=== PATIENT | female | born 1970 | race Hispanic/Latino ===

== ENCOUNTER 2016-12-25 22:47 | Emergency (ER) | payer MEDICARE ==
[~2016-12-25] VITALS: Ht 162.6 cm; Wt 179.0 kg
[2016-12-25 22:52] VITALS: BP 115/73; PULSE 71; RESP 19; O2SAT 98
[2016-12-26 00:53] LABS: BASOPHILS % (AUTO) 0.3 % (0-3); EOSINOPHILS % (AUTO) 1.4 % (0-5); MONOCYTES % (AUTO) 11.5 % (4-12); Mean Corpuscular Hemoglobin 31.7 pg (27.0-35.0); Mean Corpuscular Volume 92.6 fL (81-100); NEUTROPHILS % (AUTO) 47.8 % (40-74); Platelet Count 373 bil/L (150-400)
[2016-12-26 01:11] LABS: Magnesium 2.1 mg/dL (1.6-2.6)
--- NOTE | 2016-12-26 01:18 | ED.REPORT ---
HPI-Abd Pain F 40 and Over Date of Service Dec 26, 2016 ED Provider: Rafael Torres MD Pt is a 46 y/o female with a history of DM and hyperlipidemia who presents to the ED c/o constipation onset two weeks. Additional symptoms include worsening LLQ abdominal pain. She denies fever, melena, hematochezia, or decreased appetite. She has no history of chronic constipation or thyroid disease. Pt has seen her PCP for these symptoms. Nursing Notes Stated Complaint: ABDOMINAL PAIN, CONSTIPATION Chief Complaint: Female Abdominal Pain Nursing Notes Reviewed: Yes Allergies: Coded Allergies: No Known Allergies (Verified , 12/25/16) Scheduled Lactulose (Lactulose) 20 Gm/30 Ml Solution 20 GM PO BID General Time Seen by MD: :17 Chief Complaint Abdominal pain Hx Obtained From: Patient, Daughter Arrived By: Walk-in Sudden in Onset?: No Onset Occurred: More than a week ago... (2 weeks) Symptom Duration: Constant Location: : LLQ Quality: Painful Severity: Current: Moderate Severity: Maximum: Moderate Recent Healthcare: No recent hospitalization, Recent doctor visit Similar Sx Previous: No Past Medical History Past Medical History Gestational Hypertension Reports: Diabetes mellitus, Hyperlipidemia Past Surgical History ORIF Tib/Fib with complications Reports: Reports: Tubal ligation Smoking History Never Smoker Social History Alcohol Use: Denies alcohol use Drug Use: Denies drug use Other Social History: Good social support, Lives with children Ambulatory Status Independent Review of Systems No decreased appetite Constitutional: Denies: Fever GI: Reports: Abdominal pain (worsening LLQ ), Constipation, Denies: Hematochezia, Melena Complete sys rev & neg: except as marked. Physical Exam Vital Signs Vital Signs (First) Date Time Temp Pulse Resp B/P Pulse Ox O2 Delivery O2 Flow Rate FiO2 12/25/16 22:52 36.3 71 19 115/73 98 Room Air Initial VS: Reviewed Head / Eyes: Atraumatic, Normocephalic Neck: Supple, Full range of motion Extremities: Vascular intact, Neuro intact, No swelling, No tenderness Skin: Warm, Dry, No cyanosis Neurologic: Alert, Oriented, Nonfocal Psychiatric: Mood/affect normal, Behavior normal, Normal thought content General/Constitutional: Awake, Alert Respiratory / Chest: Atraumatic, Breath sounds NL, Breath sounds = bilat, No respiratory distress Cardiovascular: Heart rate NL, Regular rhythm, Heart sounds NL Abdomen: Soft, BS normoactive Tenderness/Guarding/Rebound: Positive: Tender LLQ... (Mild) Back: Full range of motion, Non-tender Interpretation & Diagnostics Lab Results Interpretation Result Diagram: 12/26/16 0030 12/26/16 0030 Test 12/26/16 00:30 12/26/16 02:00 White Blood Count 10.2th/mm3 (3.8-10.1) Red Blood Count 4.35mil/mm3 (3.90-5.20) Hemoglobin 13.8g/dL (12.0-15.6) Hematocrit 40.3% (35.0-46.0) Mean Corpuscular Volume 92.6fL (81-100) Mean Corpuscular Hemoglobin 31.7pg (27.0-35.0) Mean Corpuscular Hemoglobin Concent 34.2% (32.0-37.0) Red Cell Distribution Width 11.8% (12.3-15.4) Platelet Count 373bil/L (150-400) Neutrophils (%) (Auto) 47.8% (40-74) Lymphocytes (%) (Auto) 38.8% (14-46) Monocytes (%) (Auto) 11.5% (4-12) Eosinophils (%) (Auto) 1.4% (0-5) Basophils (%) (Auto) 0.3% (0-3) Sodium Level 134mEq/L (134-144) Potassium Level 4.6mEq/L (3.5-5.2) Chloride Level 98mEq/L (97-108) Carbon Dioxide Level 18mmol/L (18-29) Blood Urea Nitrogen 12mg/dL (6-24) Creatinine 0.39mg/dL (0.57-1.00) Estimat Glomerular Filtration Rate 255mL/min (>59) Glucose Level 111mg/dL (60-99) Calcium Level 9.2mg/dL (8.5-10.1) Magnesium Level 2.1mg/dL (1.6-2.6) Total Bilirubin 0.3mg/dL (0.0-1.2) Aspartate Amino Transf (AST/SGOT) 31U/L (0-50) Alanine Aminotransferase (ALT/SGPT) 36U/L (0-32) Alkaline Phosphatase 67U/L (25-150) Total Protein 7.6g/dL (6.4-8.4) Albumin 4.2g/dL (3.4-5.0) Lipase 35U/L (13-60) Thyroid Stimulating Hormone (TSH) 2.250uIU/mL (0.450-4.500) Free Thyroxine 1.06ng/dL (0.82-1.77) Hold Botello Top Tube Received (Received) Hold Urine Received (Received) CT Abd / Pelvis Interpretation Conclusion: Moderate amount of colonic stool, majority of which appears liquefied. No signs of bowel inflammation or obstruction. Diffuse hepatic steatosis. Study type: Abdominal CT IV contrast Interpretation / Wet Read by: Interpret - Radiologist Re-Eval/Medical Decision Med Decision/Clinical Course 46-year-old presents at least moderately tender in her abdomen with a story of two weeks of constipation. CT actually shows one stool at all in liquid form throughout the colon. Begun with magnesium citrate and Dulcolax at home. Follow up with PCP. Lactulose course if magnesium citrate and nuchal x-ray unsuccessful. Source of Hx: Old records Re-Evaluation/Progress : Time of Eval: 01:17 Re-Evaluation/Progress Note: Discussed plan for discharge if CT is negative. Pt understands and agrees with plan. All questions addressed. Counseled Regarding: Diagnosis, Lab results, Need for follow-up, When/why to return to ED Discharge & Departure Shift Change Sign-Out Response to Therapy: Improved Primary Impression: Abdominal pain Abdominal location: generalized Qualified Code: R10.84 - Generalized abdominal pain Additional Impression: Constipation Constipation type: unspecified constipation type Qualified Code: K59.00 - Constipation, unspecified Disposition: Home Discharge Condition All VS Reviewed: Yes Condition: Stable Patient Instructions: Abdominal Pain (ED), Constipation (ED) Additional Instructions: First thing this morning, drink the magnesium citrate bottle. Also insert two Dulcolax suppositories. If that does not result in a substantial bowel movement, begin lactulose 2 tablespoons twice daily until you are having 2-3 bowel movements daily. Follow-up with your doctor in the office. Return anytime for worsening abdominal pain. You can expect some crampy discomfort, but it should not be constant, and should not be accompanied by fever or vomiting. Referrals: Arabella Welch MD (PCP) Scribe Attestation Portions of this note were transcribed by Marimar Marcano. I, Dr. Torres, personally performed the history, physical exam and medical decision-making; I reviewed and confirmed the accuracy of the information in the transcribed note. copies to: Arabella Welch MD, Christopher W MD Dec 26, 2016 01:18 Marimar Marcano Dec 26, 2016 01:24
[2016-12-26] MEDS ORDERED: 0.9% Sodium Chloride 1,000 ML IV ONE (01:25)
[2016-12-26] MEDS ORDERED: LACT10SO60 PO (02:58)
[2016-12-26 03:26] VITALS: BP 112/70; PULSE 68; RESP 18; O2SAT 99
--- NOTE | 2016-12-26 08:50 | DRSVH ---
PROCEDURE: CT ABDOMEN AND PELVIS WITH CONTRAST ([id number]) INDICATIONS: llq pain, constipation TECHNIQUE: After the administration of intravenous contrast, 5 mm thick sections acquired from the diaphragm to the symphysis. 5 mm coronal and sagittal reformats were acquired. For radiation dose reduction, the following was used: automated exposure control, adjustment of mA and/or kV according to patient siz e. COMPARISON: None. FINDINGS: Image quality: Excellent. ABDOMEN: Lung bases: Lung bases are clear. Heart size is normal. Solid organs: Liver and spleen are normal in size and enhancement. Diffuse fatty infiltration of the liver. Gallbladder is within normal limits. Biliary system is non dilated. Pancreas enhances chente lly. No adrenal nodules. Kidneys demonstrate normal size and enhancement, without hydronephrosis. Peritoneum and bowel: Bowel loops demonstrate normal wall thickness and caliber. No free fluid or a ir. The appendix is normal. Nodes and vessels: No retroperitoneal or mesenteric adenopathy by size criteria. Aorta and inferior vena cava are normal in size. Miscellaneous: No ventral hernias. PELVIS: Genitourinary: Bladder wall thickness is normal. Small functional follicles noted in the adnexa bila terally measuring 1.6-1.9 cm in diameter. Miscellaneous: No inguinal hernias or adenopathy. Bones: No suspicious bony lesions. No vertebral body compression fractures. IMPRESSION: 1. No acute disease process. 2. No free fluid or air. 3. No inflammatory changes. 4. No dilated loops of bowel. 5. Hepatic steatosis. Dictated by: Bessie Ramos MD, PhD on 12/26/2016 at 8:44 Approved by: Bessie Ramos MD, PhD on 12/26/2016 at 8:48
== END 2016-12-26 03:27 | disposition home or self-care (01) ==
LOC: SED 22:47
DX: K59.00 Constipation, unspecified (principal); R10.84 Generalized abdominal pain; E11.9 Type 2 diabetes mellitus without complications; E78.5 Hyperlipidemia, unspecified
CPT/HCPCS: 36415; 74177; 80053; 83690; 83735; 84439; 84443; 85025; 96361; 96374; 99285; J1885; J7030; Q9967